=== PATIENT | male | born 1990 | race Caucasian/White ===

== ENCOUNTER 2019-09-23 21:57 | Emergency (ER) | payer SELFPAY ==
[~2019-09-23] VITALS: Ht 167.6 cm; Wt 85.3 kg
[2019-09-23 22:05] VITALS: Ht 167.6 cm; Wt 85.3 kg
[2019-09-23 23:11] VITALS: BP 120/83
== END 2019-09-23 23:00 | disposition home or self-care (01) ==
LOC: ED 21:57
DX: R50.9 Fever, unspecified (principal); H92.01 Otalgia, right ear; M79.10 Myalgia, unspecified site; Z20.828 Contact with and (suspected) exposure to other viral communicable diseases
CPT/HCPCS: U0003-CS